=== PATIENT | female | born 1985 | race Caucasian/White ===

== ENCOUNTER 2017-04-01 08:27 | Emergency (ER) | payer SELFPAY ==
[2017-04-01] MEDS ORDERED: EXCEDRIN EXTRA1 EAC4 PO (08:35)
[2017-04-01] MEDS ORDERED: NORCO 5-325 TA1 EACH PO (08:51)
[2017-04-01] MEDS ORDERED: ERYTHROMYCIN1 GM OP (08:51)
== END 2017-04-01 09:00 ==
LOC: EDMED 08:27
DX: S05.01XA Injury of conjunctiva and corneal abrasion without foreign body, right eye, initial encounter (principal); F17.200 Nicotine dependence, unspecified, uncomplicated; W50.0XXA Accidental hit or strike by another person, initial encounter; Z98.51 Tubal ligation status